=== PATIENT | female | born 1990 | race Caucasian/White ===

== ENCOUNTER 2020-09-07 16:37 | Outpatient (CLI) | payer OTHER, MEDICAID ==
--- NOTE | 2020-09-07 18:44 | XRAY Report ---
PROCEDURE: Ankle 3 View LT INDICATIONS: PAIN AFTER TRAUMA TECHNIQUE: 3 views of the ankle were acquired. COMPARISON: None. FINDINGS: Bones: No fractures or dislocations. Ankle mortise is normally aligned. No suspicious bony lesions . Soft tissues: No tibiotalar joint effusion. Achilles tendon appears normal. IMPRESSION: No acute osseous abnormality. Reviewed by: Mumtaz Schwartz MD on 09/07/2020 5:42 PM [facility] Approved by: Mumtaz Schwartz MD on 09/07/2020 5:42 PM [facility] Station ID: [id number]
== END 2020-09-07 16:38 | disposition home or self-care (01) ==
LOC: DI 16:37
PROVIDERS: ATTEND Internal Medicine
DX: M25.572 Pain in left ankle and joints of left foot (principal)

== ENCOUNTER 2020-10-12 07:00 | Outpatient (CLI) | payer OTHER, MEDICAID | END 2020-10-12 23:59 | disposition home or self-care (01) | LOC: COV 07:00 | PROVIDERS: ATTEND Family Medicine | DX: R50.9 Fever, unspecified (principal); R05 Cough; M79.10 Myalgia, unspecified site; R53.83 Other fatigue; R07.0 Pain in throat; R09.81 Nasal congestion; J34.89 Other specified disorders of nose and nasal sinuses; Z20.822 Contact with and (suspected) exposure to COVID-19 ==

== ENCOUNTER 2021-09-26 11:14 | Outpatient (CLI) | payer OTHER, MEDICAID ==
--- NOTE | 2021-09-26 15:15 | XRAY Report ---
PROCEDURE: Foot 3 View LT INDICATIONS: LEFT FOOT PAIN/NUMBNESS TECHNIQUE: 3 views of the foot were acquired. COMPARISON: None FINDINGS: Bones: No fractures or dislocations. No suspicious bony lesions. Soft tissues: No tibiotalar joint effusion. Achilles tendon appears normal. IMPRESSION: No evidence of acute bony abnormality of the left foot. Reviewed by: Avni Rubio MD on 09/26/2021 3:14 PM [facility] Approved by: Avni Rubio MD on 09/26/2021 3:14 PM [facility] Station ID: [id number]
--- NOTE | 2021-09-26 17:23 | XRAY Report ---
PROCEDURE: Ankle 3 View LT INDICATIONS: LEFT ANKLE PAIN TECHNIQUE: 3 views of the ankle were acquired. COMPARISON: 09/07/2020. FINDINGS: Bones: No fractures or dislocations. Ankle mortise is normally aligned. No suspicious bony lesions . Soft tissues: No tibiotalar joint effusion. Achilles tendon appears normal. IMPRESSION: No osseous lesion. If there are persistent symptoms or continued clinical concern for pathology, then repeat plain film radiographs (7-10 days) or advanced imaging (CT, MR, bone scan) should be consider ed for further evaluation. Reviewed by: Yvette Meehan MD, PhD on 09/26/2021 5:21 PM PST Approved by: Yvette Meehan MD, PhD on 09/26/2021 5:21 PM PST Station ID: [id number]
== END 2021-09-26 11:15 | disposition home or self-care (01) ==
LOC: DI.WOS 11:14
PROVIDERS: ATTEND Orthopaedic Surgery
DX: M25.572 Pain in left ankle and joints of left foot (principal)